=== PATIENT | male | born 1970 | race Caucasian/White ===

== ENCOUNTER → 2020-12-14 11:14 | Outpatient (BNVA) | payer OTHER, SELFPAY | PROVIDERS: PCP Internal Medicine; Visit Provider Physician Assistant | DX: S00.212A Abrasion of left eyelid and periocular area, initial encounter (principal); W22.09XA Striking against other stationary object, initial encounter | CPT/HCPCS: 99203 ==

== ENCOUNTER 2021-11-18 13:57 | Emergency (ER) | payer OTHER, SELFPAY ==
--- NOTE | ~2021-11-18 | CT_ITS ---
EXAMINATION: CT ANGIOGRAM NECK WITH CONTRAST CT ANGIOGRAM BRAIN WITH CONTRAST CT HEAD WITHOUT CONTRAST CLINICAL INFORMATION: Sudden onset of severe headache. Elevated blood pressure. COMPARISON: Head CT 04/30/2008. TECHNIQUE: An initial noncontrast head CT was performed. Test bolus sequences followed by intravenous administration 100 mL of Omnipaque 350. Helical imaging was performed in the axial plane from the thoracic inlet to the skull vertex. Delayed postcontrast imaging of the head was also performed. The data was processed at the manufacturing engineering technologist workstation for generation of MIP sequences. Angled MIPs and volume rendered reformatted images were also generated at an offline 3D workstation. Stenoses are assessed in accordance with NASCET criteria unless otherwise indicated. This CT examination was performed using dose optimization techniques as appropriate, variously including the following: *Automated exposure control *Adjustment of mA and/or kV according to patient size (this includes techniques or standardized protocols for targeted exams where dose is matched to indication/reason for exam; i.e. extremities or head) *Use of iterative reconstruction technique DLP: 2668 mGy-cm FINDINGS: Head CT: There is no intracranial hemorrhage, large acute infarction, or mass lesion. The ventricles are normal in size and configuration without evidence of hydrocephalus. No abnormal enhancement is seen on the postcontrast images. The dural venous sinuses are patent. The visualized paranasal sinuses and mastoid air cells are clear. Neck CTA: The aortic arch is patent. The great vessel origins are patent. The bilateral common carotid arteries are patent. No stenosis is seen at the carotid bifurcations. The cervical segments of both internal carotid arteries are patent. The bilateral vertebral arteries are patent. Head CTA: No proximal vessel occlusion is seen. Minimal atheromatous changes are seen at the carotid siphons. The anterior and posterior circulations are patent. There is no stenosis or occlusion. No aneurysm is seen. Non-vascular findings: The cervical soft tissues are within normal limits. Nonenlarged reactive appearing cervical lymph nodes are seen along the cervical chains. The upper lungs are clear. Mild degenerative changes are seen in the spine. CT/CT angio head neck IMPRESSION: CT head: No intracranial hemorrhage or large acute infarction. CTA neck: No hemodynamically significant stenosis in the major arteries of the neck. CTA head: No large vessel occlusion or significant stenosis within the intracranial circulation. No evidence of aneurysm. Additional findings: A 2.8 cm nodule is seen in the right lobe of the thyroid gland. Dedicated thyroid ultrasound is recommended on a nonemergent basis is based on size criteria.
--- NOTE | ~2021-11-18 | CT_ITS ---
EXAMINATION: CT ANGIOGRAM NECK WITH CONTRAST CT ANGIOGRAM BRAIN WITH CONTRAST CT HEAD WITHOUT CONTRAST CLINICAL INFORMATION: Sudden onset of severe headache. Elevated blood pressure. COMPARISON: Head CT 04/30/2008. TECHNIQUE: An initial noncontrast head CT was performed. Test bolus sequences followed by intravenous administration 100 mL of Omnipaque 350. Helical imaging was performed in the axial plane from the thoracic inlet to the skull vertex. Delayed postcontrast imaging of the head was also performed. The data was processed at the dairy technologist workstation for generation of MIP sequences. Angled MIPs and volume rendered reformatted images were also generated at an offline 3D workstation. Stenoses are assessed in accordance with NASCET criteria unless otherwise indicated. This CT examination was performed using dose optimization techniques as appropriate, variously including the following: *Automated exposure control *Adjustment of mA and/or kV according to patient size (this includes techniques or standardized protocols for targeted exams where dose is matched to indication/reason for exam; i.e. extremities or head) *Use of iterative reconstruction technique DLP: 2668 mGy-cm FINDINGS: Head CT: There is no intracranial hemorrhage, large acute infarction, or mass lesion. The ventricles are normal in size and configuration without evidence of hydrocephalus. No abnormal enhancement is seen on the postcontrast images. The dural venous sinuses are patent. The visualized paranasal sinuses and mastoid air cells are clear. Neck CTA: The aortic arch is patent. The great vessel origins are patent. The bilateral common carotid arteries are patent. No stenosis is seen at the carotid bifurcations. The cervical segments of both internal carotid arteries are patent. The bilateral vertebral arteries are patent. Head CTA: No proximal vessel occlusion is seen. Minimal atheromatous changes are seen at the carotid siphons. The anterior and posterior circulations are patent. There is no stenosis or occlusion. No aneurysm is seen. Non-vascular findings: The cervical soft tissues are within normal limits. Nonenlarged reactive appearing cervical lymph nodes are seen along the cervical chains. The upper lungs are clear. Mild degenerative changes are seen in the spine. CT/CT head/brain wo con IMPRESSION: CT head: No intracranial hemorrhage or large acute infarction. CTA neck: No hemodynamically significant stenosis in the major arteries of the neck. CTA head: No large vessel occlusion or significant stenosis within the intracranial circulation. No evidence of aneurysm. Additional findings: A 2.8 cm nodule is seen in the right lobe of the thyroid gland. Dedicated thyroid ultrasound is recommended on a nonemergent basis is based on size criteria.
[2021-11-18 14:02] VITALS: BP 185/132; PULSE 127; RESP 18; TEMP 36.8; O2SAT 100; BMI 30.8
--- NOTE | 2021-11-18 14:18 | ECG_ITS ---
Test Reason : general medical Blood Pressure : / mmHG Vent. Rate : 116 BPM Atrial Rate : 116 BPM P-R Int : 152 ms QRS Dur : 088 ms QT Int : 340 ms P-R-T Axes : 041 008 048 degrees QTc Int : 472 ms Sinus tachycardia Inferior infarct , age undetermined Abnormal ECG When compared with ECG of 13-FEB-2013 03:55, Vent. rate has increased BY 47 BPM Inferior infarct is now Present Referred By: Generic ED Physician Electronically Signed By:BARNEY DUTTA
[2021-11-18 14:28] LABS: MANUAL DIFF FLAG NO
[2021-11-18 14:33] LABS: Basophils Percent Auto 0.5 % (0-2); Eosinophils Absolute Auto 0.1 X10*3/uL (0.0-0.4); Eosinophils Percent Auto 1.4 % (0-4); Hematocrit 47.8 % (42.0-52.0); Hemoglobin 16.6 g/dl (14.0-18.0); Imm Gran Abs Auto 0.07 X10*3/uL (0.00-0.03); Imm Gran Pct Auto 0.9 % (0.0-0.4); Lymphocytes Absolute Auto 1.9 X10*3/uL (1.2-4.9); Lymphocytes Percent Auto 23.5 % (20-40); Mean Corpuscular HGB Conc 34.7 g/dl (31.0-36.0); Mean Corpuscular Hemoglobin 30.1 pg (27.0-33.0); Mean Corpuscular Volume 86.8 fL (80.0-98.0); Mean Platelet Volume 12.5 fL (9.4-12.4); Monocytes Absolute Auto 0.6 X10*3/uL (0.1-1.2); Monocytes Percent Auto 7.5 % (2-11); Neutrophils Absolute Auto 5.3 x10*3/uL (2.0-8.3); Neutrophils Percent Auto 66.2 % (45-73); Platelet Count 166 X10*3/uL (160-400); Red Blood Count 5.51 X10*6/uL (4.60-5.80)
[2021-11-18 14:48] LABS: Anion Gap 15 (12-20); Blood Urea Nitrogen 12 mg/dL (9-16); Calcium 10.1 mg/dL (8.4-10.2); Carbon Dioxide 26 mmol/L (22-29); Chloride 103 mmol/L (96-108); Creatinine Clr Calc Pharmacy 111.3; Estimated Glomerular Filt Rate > 60; Glucose Random 103 mg/dL (60-115); Potassium 4.3 mmol/L (3.3-5.1); Sodium 140 mmol/L (135-145)
[2021-11-18 14:52] LABS: Troponin-I High Sensitivity 3.8 ng/L (<3.5-35.0)
--- NOTE | 2021-11-18 15:57 | ED.GENADULT ---
HPI - General Adult General Chief complaint: Dizziness Stated complaint: dizziness/ high BP Time Seen by Provider: 11/18/21 15:02 Source: patient and EMS Mode of arrival: EMS Limitations: no limitations History of Present Illness HPI narrative: Patient comes to emergency room complaining of a sudden onset of dizziness and a headache patient states that it lasted for about a minute, had trouble focusing, dizziness self-resolved within couple of minutes. Patient states that he still has mild headache. Related Data Previous Rx's Medication Instructions Recorded hydrochlorothiazide 25 mg tablet 25 mg PO DAILY #30 tab 11/18/21 Allergies Allergy/AdvReac Type Severity Reaction Status Date / Time niacin Allergy Unknown SWELLING Verified 11/18/21 16:51 [From NIASPAN EXTENDED-RELEASE] Review of Systems Review of Systems: Constitutional : No Weight loss, No Fever, No Chills, No Night Sweats, No Fatigue, No Malaise ENT/Mouth : No Hearing loss, No Ear Pain, No Nasal Congestion, No Sinus Pain, No Hoarseness, No sore throat, No Rhinorrhea, No Swallowing Difficulty Eyes: No Eye Pain, No Swelling, No Redness, No Foreign Body, No Discharge, No Vision Changes Cardiovascular : No Chest Pain, No SOB, No Dyspnea on Exertion, No Orthopnea, No Edema, No Palpitations Respiratory : No Cough, No Sputum, No Wheezing, No Smoke Exposure, No Dyspnea Gastrointestinal : No Nausea, No Vomiting, No Diarrhea, No Constipation, No abdominal Pain, No Hematochezia, No Melena Genitourinary : no irregular bleeding, No Dysuria, No Urinary Frequency, No Hematuria, No Urinary Incontinence, No Urgency, No Flank Pain, No Urinary Flow Changes, No Hesitancy Musculoskeletal : No joint pain, No Myalgias, No Joint Swelling Skin : No Skin Lesions, No rash Neuro : No Weakness, No Numbness, No Paresthesias, No Loss of Consciousness, No Dizziness, No Headache Psych : No Anxiety/Panic, No Depression, No SI/HI/AH/VH, No Social Issues, Heme/Lymph: No Bruising, No Bleeding,No Lymphadenopathy Endocrine : No Polyuria, No Polydipsia, No Temperature Intolerance PMFSH Social History Social History Alcohol intake: current Alcohol intake frequency: holidays/special occasions only Patient Tobacco Use Status: Never used Tobacco Use of substances other than those prescribed or required for medical reasons: No Advance Directives: No Advance Directives Information Provided: No Physical Exam ED Vital Signs: Vital Signs - 24 hr 11/18/21 14:02 11/18/21 16:45 Temperature 98.2 F 98.1 F Pulse Rate 127 H 87 Respiratory Rate 18 18 Blood Pressure 185/132 H 139/94 H Pulse Oximetry 100 98 BMI result Body Mass Index 30.8 Course Course Course Narrative: Patient no longer has a headache, blood pressure is now 139/94, patient did not take any medications. Patient is now asymptomatic. Head CT and CTA negative. I also discussed with the patient that the incidental thyroid nodule was found. Patient will follow up with his primary care physician. I also discussed with the patient the options of keeping a log for blood pressure, and following up with his primary care physician. However, patient decided to start treatment now. Medical Decision Making Lab Data Result diagrams: 11/18/21 16:44 11/18/21 16:44 Labs: Lab Results 11/18/21 11/18/21 11/18/21 Range/Units 14:23 14:23 14:23 WBC 8.0 (4.8-10.8) X10*3/uL RBC 5.51 (4.60-5.80) X10*6/uL Hgb 16.6 (14.0-18.0) g/dl Hct 47.8 (42.0-52.0) % MCV 86.8 (80.0-98.0) fL MCH 30.1 (27.0-33.0) pg MCHC 34.7 (31.0-36.0) g/dl RDW 12.0 (11.0-16.0) % Plt Count 166 (160-400) X10*3/uL MPV 12.5 H (9.4-12.4) fL Immature Gran % (Auto) 0.9 H (0.0-0.4) % Neut % (Auto) 66.2 (45-73) % Lymph % (Auto) 23.5 (20-40) % [place] % (Auto) 7.5 (2-11) % Eos % (Auto) 1.4 (0-4) % Baso % (Auto) 0.5 (0-2) % Lymph # (Auto) 1.9 (1.2-4.9) X10*3/uL [place] # (Auto) 0.6 (0.1-1.2) X10*3/uL Eos # (Auto) 0.1 (0.0-0.4) X10*3/uL Baso # (Auto) 0.0 (0.0-0.2) X10*3/uL Abs Immat Gran (auto) 0.07 H (0.00-0.03) X10*3/uL Absolute Neuts (auto) 5.3 (2.0-8.3) x10*3/uL Absolute Nucleated RBC 0.000 (0.0-0.012) X10*3/uL Nucleated RBC % (auto) 0.0 (0.0-0.2) /100WBC Sodium 140 (135-145) mmol/L Potassium 4.3 (3.3-5.1) mmol/L Chloride 103 (96-108) mmol/L Carbon Dioxide 26 (22-29) mmol/L Anion Gap 15 (12-20) BUN 12 (9-16) mg/dL Creatinine 0.93 (0.5-1.4) mg/dL Estim Creat Clear Calc 111.3 Estimated GFR > 60 Random Glucose 103 (60-115) mg/dL Calcium 10.1 (8.4-10.2) mg/dL Troponin I High Sens 3.8 (<3.5-35.0) ng/L B-Natriuretic Peptide (<100) pg/mL 11/18/21 11/18/21 11/18/21 Range/Units 16:44 16:44 16:44 WBC 8.8 (4.8-10.8) X10*3/uL RBC 5.44 (4.60-5.80) X10*6/uL Hgb 16.3 (14.0-18.0) g/dl Hct 47.0 (42.0-52.0) % MCV 86.4 (80.0-98.0) fL MCH 30.0 (27.0-33.0) pg MCHC 34.7 (31.0-36.0) g/dl RDW 12.1 (11.0-16.0) % Plt Count 162 (160-400) X10*3/uL MPV 12.6 H (9.4-12.4) fL Immature Gran % (Auto) 0.8 H (0.0-0.4) % Neut % (Auto) 63.9 (45-73) % Lymph % (Auto) 26.6 (20-40) % [place] % (Auto) 7.1 (2-11) % Eos % (Auto) 1.1 (0-4) % Baso % (Auto) 0.5 (0-2) % Lymph # (Auto) 2.3 (1.2-4.9) X10*3/uL [place] # (Auto) 0.6 (0.1-1.2) X10*3/uL Eos # (Auto) 0.1 (0.0-0.4) X10*3/uL Baso # (Auto) 0.0 (0.0-0.2) X10*3/uL Abs Immat Gran (auto) 0.07 H (0.00-0.03) X10*3/uL Absolute Neuts (auto) 5.6 (2.0-8.3) x10*3/uL Absolute Nucleated RBC 0.000 (0.0-0.012) X10*3/uL Nucleated RBC % (auto) 0.0 (0.0-0.2) /100WBC Sodium 138 (135-145) mmol/L Potassium 4.3 (3.3-5.1) mmol/L Chloride 103 (96-108) mmol/L Carbon Dioxide 25 (22-29) mmol/L Anion Gap 14 (12-20) BUN 11 (9-16) mg/dL Creatinine 0.83 (0.5-1.4) mg/dL Estim Creat Clear Calc 124.7 Estimated GFR > 60 Random Glucose 85 (60-115) mg/dL Calcium 9.9 (8.4-10.2) mg/dL Troponin I High Sens 3.9 (<3.5-35.0) ng/L B-Natriuretic Peptide < 10 (<100) pg/mL Discharge Plan Discharge Clinical Impression: Hypertension, Headache Patient Disposition: Home, Self-Care Instructions: Acute Headache (DC), Hypertension (ED) Additional Instructions: Please follow-up with your primary care physician tomorrow. If you have any worsening or new symptoms, please return to the emergency room or call 911 Prescriptions: New hydrochlorothiazide 25 mg tablet 25 mg PO DAILY Qty: 30 0RF
[2021-11-18 16:45] VITALS: BP 139/94; PULSE 87; RESP 18; TEMP 36.7; O2SAT 98
--- NOTE | 2021-11-18 16:50 | PC.NURSE ---
no neuro deficits. describes episodes of lightheadedness, headache (right frontal), dizziness, difficulty focusing eyes.
[2021-11-18 16:57] LABS: MANUAL DIFF FLAG NO
[2021-11-18 17:00] LABS: Basophils Percent Auto 0.5 % (0-2); Eosinophils Absolute Auto 0.1 X10*3/uL (0.0-0.4); Eosinophils Percent Auto 1.1 % (0-4); Hemoglobin 16.3 g/dl (14.0-18.0); Imm Gran Abs Auto 0.07 X10*3/uL (0.00-0.03); Imm Gran Pct Auto 0.8 % (0.0-0.4); Lymphocytes Absolute Auto 2.3 X10*3/uL (1.2-4.9); Lymphocytes Percent Auto 26.6 % (20-40); Mean Corpuscular HGB Conc 34.7 g/dl (31.0-36.0); Mean Corpuscular Volume 86.4 fL (80.0-98.0); Mean Platelet Volume 12.6 fL (9.4-12.4); Monocytes Absolute Auto 0.6 X10*3/uL (0.1-1.2); Monocytes Percent Auto 7.1 % (2-11); Neutrophils Absolute Auto 5.6 x10*3/uL (2.0-8.3); Neutrophils Percent Auto 63.9 % (45-73); Platelet Count 162 X10*3/uL (160-400); Red Blood Count 5.44 X10*6/uL (4.60-5.80); Red Cell Distribution Width 12.1 % (11.0-16.0); White Blood Count 8.8 X10*3/uL (4.8-10.8)
[2021-11-18 17:13] LABS: Anion Gap 14 (12-20); Blood Urea Nitrogen 11 mg/dL (9-16); Calcium 9.9 mg/dL (8.4-10.2); Carbon Dioxide 25 mmol/L (22-29); Chloride 103 mmol/L (96-108); Creatinine Clr Calc Pharmacy 124.7; Estimated Glomerular Filt Rate > 60; Glucose Random 85 mg/dL (60-115); Potassium 4.3 mmol/L (3.3-5.1); Sodium 138 mmol/L (135-145)
[2021-11-18 17:19] LABS: B Type Natriuretic Peptide < 10 pg/mL (<100); Troponin-I High Sensitivity 3.9 ng/L (<3.5-35.0)
[2021-11-18] MEDS: Acetaminophen 325 MG TABLET 650 MG PO (17:36)
[2021-11-18] MEDS: 0.9 % Sodium Chloride 1,000 ML 999 ML IVCONT (17:36)
[2021-11-18] MEDS: iohexoL 350 MG/ML 100 ML INFUS..BTL IV (17:39)
== END 2021-11-18 18:37 | disposition home or self-care (01) ==
PROVIDERS: Emergency Provider Emergency Medicine; PCP Internal Medicine
DX: I10 Essential (primary) hypertension (principal); R51.9 Headache, unspecified; R93.0 Abnormal findings on diagnostic imaging of skull and head, not elsewhere classified; E04.1 Nontoxic single thyroid nodule
CPT/HCPCS: 36415; 70450; 70496; 70498; 80048; 83880; 84484; 85025; 93005; 96360; 99284; 99285; Q9967

== ENCOUNTER 2021-12-05 15:25 | Outpatient (REF) | payer OTHER, SELFPAY ==
[2021-12-05 18:00] LABS: Red Cell Distribution Width 12.1 % (11.0-16.0); White Blood Count 9.6 X10*3/uL (4.8-10.8)
[2021-12-05 18:02] LABS: Hematocrit 48.7 % (42.0-52.0); Hemoglobin 16.9 g/dl (14.0-18.0); Mean Corpuscular HGB Conc 34.7 g/dl (31.0-36.0); Mean Corpuscular Hemoglobin 30.1 pg (27.0-33.0); Mean Corpuscular Volume 86.7 fL (80.0-98.0); Mean Platelet Volume 13.6 fL (9.4-12.4); Platelet Count 168 X10*3/uL (160-400); Red Blood Count 5.62 X10*6/uL (4.60-5.80)
[2021-12-05 18:09] LABS: Alanine Aminotransferase 54 U/L (0-40); Albumin Level 4.9 g/dL (3.5-5.0); Alkaline Phosphatase 115 U/L (39-117); Anion Gap 13 (12-20); Aspartate Amino Transferase 30 U/L (5-37); Bilirubin Total 0.9 mg/dL (0.0-1.0); Blood Urea Nitrogen 10 mg/dL (9-16); Calcium 10.4 mg/dL (8.4-10.2); Carbon Dioxide 29 mmol/L (22-29); Chloride 99 mmol/L (96-108); Estimated Glomerular Filt Rate > 60; Glucose Random 74 mg/dL (60-115); Potassium 4.3 mmol/L (3.3-5.1); Sodium 137 mmol/L (135-145); Total Protein 7.9 g/dL (6.5-8.0)
[2021-12-05 18:24] LABS: PLT ABN DIST 1
[2021-12-05 18:35] LABS: Thyroid Stimulating Hormone 1.42 uIU/mL (0.32-4.0); Vitamin D 25-OH Total 17.6 ng/mL (>30)
[2021-12-05 19:07] LABS: Prostate Specific Antigen 1.51 ng/mL (<0.05-4.0)
== END 2021-12-05 15:26 | disposition home or self-care (01) ==
LOC: HO.MANLDS 15:25
PROVIDERS: PCP Internal Medicine; Visit Provider Internal Medicine
DX: I10 Essential (primary) hypertension (principal); Z12.5 Encounter for screening for malignant neoplasm of prostate
CPT/HCPCS: 36415; 80053; 82306; 84153; 84443; 85027

== ENCOUNTER → 2022-01-24 07:23 | Outpatient (REF) | payer OTHER, SELFPAY ==
--- NOTE | 2022-01-24 07:28 | CA_ITS ---
Transthoracic Echocardiogram Patient (Last, First, Middle): Je Sherwood J Gender: Male Date of : 1970 Age: 51 Procedure Date: 01/24/2022 Procedure Type: Transthoracic Echocardiogram Location: OP Height: 177.8 cm Weight: 99.79 kg BSA: 2.17 m2 Heart Rate: bpm BP: 128 / 82 mmHg Production Planner: MIHAI Referring MD: Anup Mendoza MD Symptoms: I10 HTN Study Quality: Adequate ECG Rhythm: Sinus Conclusions: - The left ventricular systolic function is normal. The calculated ejection fraction is 61% by biplane method. - There is mild septal asymmetric hypertrophy. - No obvious valvular pathology seen on this study. Findings Left Ventricle Normal left ventricular cavity size. The left ventricular systolic function is normal. The calculated ejection fraction is 61% by biplane method. There is no evidence of regional wall motion abnormalities. Diastolic function is normal for age. There is mild septal asymmetric hypertrophy. LV peak global longitudinal strain -18.8% (normal). Right Ventricle Normal right ventricular cavity size and systolic function. Atria Both atria are normal in size. Aortic Valve There is a normal trileaflet aortic valve. There is no aortic valve stenosis. There is no aortic valve regurgitation. Mitral Valve The mitral valve appears normal. There is trace mitral valve regurgitation. There is no mitral valve stenosis. Pulmonic Valve The pulmonic valve is likely normal. There is trace pulmonic valve regurgitation. Tricuspid Valve Normal tricuspid valve structure. There is trace tricuspid valve regurgitation. The pulmonary artery systolic pressure is normal. Great Vessels Top-normal ascending aortic size at 3.7 cm. Venous The inferior vena cava is normal in size and collapses greater than 50% with inspiration. Pericardium/Pleural There is no evidence of pericardial effusion. Prior Study Comparison No prior study available for comparison. Recommendations, Care & Conclusions No obvious valvular pathology seen on this study. Measurements 2D Linear Measurements IVSd: 1.09 0.6-0.9/0.6-1.0 cm LVIDd: 5.27 3.9-5.3/4.2-5.9 cm LVIDd Index: 2.43 2.4-3.2/2.2-3.1 cm/m2 LVIDs: 3.79 2.0-3.6 cm LVPWd: 1.00 0.7-1.1 cm LA Diam: 3.80 2.7-3.8/3.0-4.0 cm LAIDs Index: 1.75 1.5-2.3 cm/m2 LV Mass: 262.42 67-162/88-224 g LV Mass Index: 120.93 43-95/49-115 g/m2 LVOT Diam: 2.40 3.0+(-)1.3 cm 2D Systolic Function EF 4C: 61.70 >55% EF 2C: 60.70 >55% EF BiP: 60.50 >55% Mitral Valve MV Pk E: 0.85 MV PK A: 0.58 MV Decel Time: 223.00 E/A: 1.50 E'Lateral: 12.00 E'Medial: 8.70 E/E' Med: 9.70 E/E' Lat: 7.10 PHT: 65.00 MVA PHT: 3.38 Decel [place]: 3.81 Aortic Valve AoV Pk Chivo: 1.09 AoV Mn Chivo: 0.80 AoV VTI: 0.27 AoV Pk Grad: 5.00 Aov Mn Grad: 3.00 CYNTHIA Cont.VTI: 3.88 LVOT LVOT Pk Chivo: 0.84 LVOT Mn Chivo: 0.62 LVOT VTI: 0.23 LVOT Pk Grad: 3.00 LVOT Mn Grad: 2.00 LVOT Diam: 2.40 LVOT Area: 4.52 Diastolic Function MV Pk E: 0.85 MV Pk A: 0.58 E/A: 1.50 E'Medial: 8.70 E/E' Med: 9.70 E' Laterial: 12.00 E/E' Lat: 7.10 Right Ventricle TAPSE (mm): 19.90 TVS' Chivo: 8.05 Tricuspid Valve TR Pk Chivo: 2.04 TR Pk Grad: 17.00 RA Press: 3.00 RVSP: 20.00 Great Vessels Aorta Sinus of Valsalva: 3.91 2.0-3.[address] [place]: 3.46 1.7-3.4 cm Ao Asc: 3.70 2.1-3.4 cm Updated in Other Vendor System with Status of Final Julien Saleh MD electronically signed on 01/25/2022 11:18:00 AM with status of Final
--- NOTE | 2022-01-24 08:30 | CA_ITS ---
Acquisition Time: 2022-01-24 08:25:32 Total Exercise Time: 00:11:27 Test Indications: HTN Medications: SEE CHART Protocol: RADHA Max HR: 153 BPM 90% of Pred: 170 BPM Max BP: 154/090 mmHG Max Work Load: 13.4 METS Exercise stress test with exercise 11 min 27 sec of Burce protocol, achieving 90% MPHR, 13.3 METs without anginal symptoms, without arrythmia, with normotensive response to exercise, without EKG changes meeting criteria for ischemia at peak exercise, with ST/T wave abnormality lead III, aVF, V6 at baseline, then more pronounced T wave inversions inferiorly, V4-V6 in recovery. Test reviewed with Dr Dillon. Call placed to Dr Mendoza' s office with above report and recommendation for stress echocardiogram if further eval for ischemia is needed. Referred By: Anup Mendoza Overread By: MINA SALCEDO
== END ==
LOC: HO.CARD 07:23
PROVIDERS: PCP Internal Medicine; Visit Provider Internal Medicine
DX: I10 Essential (primary) hypertension (principal); R94.39 Abnormal result of other cardiovascular function study
CPT/HCPCS: 93017; 93306; 93356

== ENCOUNTER → 2022-03-20 10:49 | Outpatient (REF) | payer OTHER, SELFPAY ==
--- NOTE | 2022-03-20 12:00 | CA_ITS ---
Acquisition Time: 2022-03-20 11:39:29 Total Exercise Time: 00:11:01 Test Indications: Abnormal Treadmill Test Medications: METOPROLOL Protocol: RADHA Max HR: 169 BPM 99% of Pred: 170 BPM Max BP: 162/098 mmHG Max Work Load: 13.4 METS Exercise stress test with exercise 11 min 1 sec of Radha protocol, achieving 96% MPHR, 13.3 METs, without anginal symptoms, with isolated PVC, with normotensive response to exercise, without EKG changes meeting criteria for ischemia at peak exercise, there is downsloping ST leads III, V5, V6 at baseline and more pronounced in later recover. Echo images obtained by [facility] You [facility] at rest and immediately post peak exercise. Definity contrast used. Test reviewed with Dr Dillon. Referred By: Sheryl Cantu Overread By: MINA SALCEDO
== END ==
LOC: HO.CARD 10:49
PROVIDERS: Visit Provider Physician Assistant
DX: R94.39 Abnormal result of other cardiovascular function study (principal)
CPT/HCPCS: 93350; Q9957

== ENCOUNTER 2022-04-28 06:57 | Outpatient (REF) | payer OTHER, SELFPAY ==
[2022-04-28 07:53] LABS: Cholesterol 243 mg/dL; HDL Cholesterol 34 mg/dL; LDL Cholesterol Calculated 142 mg/dl; Triglycerides 337 mg/dL
== END 2022-04-28 06:58 | disposition home or self-care (01) ==
LOC: HO.LAB 06:57
PROVIDERS: PCP Internal Medicine; Visit Provider Internal Medicine Cardiovascular Disease
DX: R00.2 Palpitations (principal)
CPT/HCPCS: 36415; 80061

== ENCOUNTER 2024-01-22 11:19 | Outpatient (REF) | payer OTHER, SELFPAY ==
[2024-01-22 13:17] LABS: MANUAL DIFF FLAG NO
[2024-01-22 13:42] LABS: Estimated Average Glucose 97 mg/dL
[2024-01-22 14:00] LABS: Iron 129 mcg/dL (45-160); Percent Iron Saturation 46 % (15-50); Total Iron Binding Capacity 279 mcg/dL (228-428); Unsaturated Iron Binding 150 ug/dL
[2024-01-22 14:02] LABS: Basophils Percent Auto 0.7 % (0-2); Eosinophils Absolute Auto 0.1 X10*3/uL (0.0-0.4); Eosinophils Percent Auto 2.1 % (0-4); Hematocrit 45.7 % (42.0-52.0); Hemoglobin 15.7 g/dl (14.0-18.0); Imm Gran Abs Auto 0.02 X10*3/uL (0.00-0.03); Imm Gran Pct Auto 0.3 % (0.0-0.4); Lymphocytes Absolute Auto 1.7 X10*3/uL (1.2-4.9); Lymphocytes Percent Auto 29.5 % (20-40); Mean Corpuscular HGB Conc 34.4 g/dl (31.0-36.0); Mean Corpuscular Hemoglobin 30.2 pg (27.0-33.0); Mean Corpuscular Volume 87.9 fL (80.0-98.0); Mean Platelet Volume 13.5 fL (9.4-12.4); Monocytes Absolute Auto 0.5 X10*3/uL (0.1-1.2); Monocytes Percent Auto 8.5 % (2-11); Neutrophils Absolute Auto 3.4 x10*3/uL (2.0-8.3); Neutrophils Percent Auto 58.9 % (45-73); Platelet Count 153 X10*3/uL (160-400); Red Cell Distribution Width 12.4 % (11.0-16.0); White Blood Count 5.8 X10*3/uL (4.8-10.8)
[2024-01-22 14:05] LABS: Ferritin 645 ng/mL (20-250); Free T4 (Free Thyroxine) 0.98 ng/dL (0.71-1.85); Vitamin D 25-OH Total 84.6 ng/mL (>30)
[2024-01-22 14:17] LABS: Cortisol Random 8.6 ug/dL
[2024-01-22 14:19] LABS: Erythrocyte Sedimentation Rate 2 MM/HR (0-15)
[2024-01-22 14:28] LABS: Prostate Specific Antigen 0.41 ng/mL (<0.05-4.0)
[2024-01-22 14:31] LABS: Folate 10.5 ng/mL (> or = 4.0); Vitamin B12 350 pg/mL (200-900)
[2024-01-23 08:33] LABS: Triiodothyronine T3 Free 3.8 pg/mL (2.3-4.2)
[2024-01-23 08:58] LABS: Lyme Abs Screen <0.90 index
[2024-01-24 12:53] LABS: A phagocytophilum IgG <1:64 (<1:64); A phagocytophilum IgM <1:20 (<1:20)
[2024-01-26 16:52] LABS: Testosterone, Total 385 ng/dL (250-1100)
== END 2024-01-22 11:20 | disposition home or self-care (01) ==
LOC: HO.MANLDS 11:19
PROVIDERS: Visit Provider Physician Assistant
DX: R53.83 Other fatigue (principal); Z12.5 Encounter for screening for malignant neoplasm of prostate
CPT/HCPCS: 36415; 82306; 82533; 82607; 82728; 82746; 83036; 83540; 84153; 84402; 84403; 84439; 84443; 84481; 85025; 85652; 86140; 86617; 86618; 86666

== ENCOUNTER 2024-05-13 06:08 | Outpatient (REF) | payer BC, SELFPAY ==
[2024-05-13 08:46] LABS: Albumin Level 4.6 g/dL (3.5-5.0); Aspartate Amino Transferase 29 U/L (5-37); Bilirubin Direct 0.3 mg/dL (0.0-0.5); Bilirubin Total 0.9 mg/dL (0.0-1.0); Cholesterol 144 mg/dL (<200); HDL Cholesterol 38 mg/dL (>40); LDL Cholesterol Calculated 84 mg/dL (<100); Total Protein 7.2 g/dL (6.5-8.0); Triglycerides 112 mg/dL (<150)
[2024-05-13 08:53] LABS: Alanine Aminotransferase 42 U/L (0-40); Alkaline Phosphatase 101 U/L (39-117)
== END 2024-05-13 06:09 | disposition home or self-care (01) ==
LOC: HO.LAB 06:08
PROVIDERS: PCP Internal Medicine; Visit Provider Internal Medicine Cardiovascular Disease
DX: E78.00 Pure hypercholesterolemia, unspecified (principal)
CPT/HCPCS: 36415; 80061; 80076

== ENCOUNTER 2024-08-01 19:45 | Outpatient (REF) | payer BC, SELFPAY ==
--- NOTE | ~2024-08-01 | MR_ITS ---
EXAMINATION: MR KNEE WITHOUT CONTRAST, LEFT CLINICAL INFORMATION: Left knee pain and swelling. Arthritis and instability. COMPARISON: Left knee MRI dated 04/12/2018. TECHNIQUE: MRI of the knee without contrast was performed using routine sequences on a high-field scanner. FINDINGS: MENISCI: Medial Meniscus: Oblique tibial articular surface tear at the posterior aspect of the meniscal body extending to the inner margin of the posterior horn and root. Lateral Meniscus: Intact. LIGAMENTS: Cruciate: Intact. Collateral: Mild edema adjacent to the medial collateral ligament consistent with a grade 1 sprain. Intact fibular collateral ligament. EXTENSOR MECHANISM: Superior and inferior patellar enthesophytes. Mild distal quadriceps and proximal patellar tendinosis. No measurable tear. Normal patellofemoral alignment. ARTICULAR CARTILAGE/BONE: Patellofemoral Compartment: Medial patellar facet and central trochlear signal heterogeneity. Medial Compartment: Articular cartilage signal heterogeneity and surface irregularity at the central aspect of the weightbearing medial femoral condyle. Lateral Compartment: Minimal posterolateral tibial plateau articular cartilage signal heterogeneity. JOINT FLUID AND BURSAE: Small joint effusion. MR/MR knee LT wo con IMPRESSION: 1. Oblique tibial articular surface tear at the posterior aspect of the medial meniscal body extending to the inner margin of the posterior horn and root. 2. Probable grade 1 sprain of the medial collateral ligament. 3. Mild distal quadriceps and proximal patellar tendinosis. 4. Minimal tricompartmental arthrosis. Small joint effusion. Electronically signed by: Haider Grant MD 08/14/2024 01:17 PM [facility] Workstation: -[id number]
== END 2024-08-01 19:46 | disposition home or self-care (01) ==
LOC: HO.MRI 19:45
PROVIDERS: PCP Internal Medicine; Visit Provider Internal Medicine
DX: M25.362 Other instability, left knee (principal)
CPT/HCPCS: 73721

== ENCOUNTER 2025-04-10 08:28 | Outpatient (AMB) | payer OTHER, SELFPAY ==
--- OUTSIDE RECORDS SUMMARY | 2024-08-07 09:01 | XMS_ITS ---
Author Name [facility] Organization [facility] Address [address] [place] [address] Care Team Providers Care Warp Starter Name Role Phone HUMBLE MANN Primary Care Provider Unavailabl e Insurance Providers: All historical and current Section Date Range: From patient's date of to the date document was created. This section includes the names of all active insurance providers for the patient. Insurance Provider Type of Coverage Plan Name Start of Policy Coverage End of Policy Coverage Group Number Member ID Insurance Provider's Telephone Number Policy Hilton's Name Patient's Relationship to Policy Hilton [facility] POLIC E DEPT Mar 03, 2024 [id number] Catherine CORDON PATIENT [facility] Mar 03, 2024 [id number] Catherine CORDON PATIENT Selected Encounter This section includes the information on record at [place] for the Encounter. Date/Time Encounter Type Encounter Description Reason Pro vider Source Aug 07, 2024 01:01 PM Outpatient Encounter ADMIN PAT ACTIVTIES (MASNONCT) IHE Encounter Template Text not used by [place] Plan of Treatment: Future Appointments (+ 6 months) and Future Tests (+/- 45 days) The Plan of Treatment section includes future care activities for the patient from all [facility] treatment[facility]ilities. This section includes future appointments and future orders which are active, pending or scheduled. Future Appointments This section includes appointments that were scheduled to occur 6 months from the date of the Encounter, up to a maximum of 20 appointments. The data comes from all [facility] facilities. Appointment Date/Time Appointment Type Appointme nt Facility Name Aug 29, 2024 02:00 PM [facility] Sep 05, 2024 04:00 PM [facility] [place] [facility] Sep 17, 2024 10:00 AM AMBULAT[facility] [place] [facility] Oct 16, 2024 01:00 PM AMBULATORY - [facility] [place] [facility] Oct 17, 2024 09:00 AM [facility] - [facility]IC[facility] Nov 06, 2024 08:30 AM AMBULATORY - NONE [facility] [place] [facility] Dec 04, 2024 01:00 PM AMBULATORY [facility] [place] [facility] Dec 29, 2024 11:40 AM [facility] [place] [facility] Feb 04, 2025 12:30 PM AMBULATORY - MEDICINE [facility] Active, Pending, and Scheduled Orders This section includes a listing of several types of active, pending, and scheduled orders, including clinic medications orders, diagnostic test orders, procedure orders and consult orders; where the start date of the order is 45 days before the date of the Encounter or 45 days after the date of theEncounter. The data comes from all [facility]. Test Date/Time Test Type Test Details Facility Name Aug 29, 2024 02:49 PM Consult Order COMMUNITY CARE-COLONOSCOPY SCREENING Cons Candles Pourer[facility] Advance Directives: All historical and current Section Date Range: From patient's date of to the date document was created. This section includes ALL of a patient's completed or amended [place] Advance and Rescinded Directives. The entries below indicate that a directive exists for the patient, but an actual copy is not included with this document. The data comes from all [facility]. Date Advance Directives Provider Source Aug 29, 2024 ADVANCE DIRECTIVE EL [facility] [place] [facility] Encounter Notes: All associated encounter notes This section contains the clinical notes associated to the Encounter. Date/Time Encounter Note(s) Provider Source Aug 07, 2024 03:27 PM ADDENDUM: LOCAL TITLE: Addendum STANDARD TITLE: ADDENDUM DATE OF NOTE: AUG 07, 2024@15:27:53 ENTRY DATE: AUG 07, 2024@15:27:54 AUTHOR: JERMAIN KNAPP EXP COSIGNER: URGENCY: STATUS: COMPLETED AMSA/RN please call to schedule for a 60 min new patient appointment within 20 days, virtual or face to face to meet new pt scheduling guidelines. Appointment needs to be scheduled on or before Aug PATIENT PHONE - [phone] No data available F/U RTC should go to SO/PACT 5 /es/ JERMAIN KNAPP SCREEN PRINTING INSPECTOR RADIO RIGGER Signed: 08/07/2024 15:28 Receipt Acknowledged By: 08/08/2024 09:28 /es/ CAROLYN SARAVIA === --- Original Document --- 08/07/24 CCC: SCHEDULING ADMINISTRATION: DEMOGRAPHICS VERIFIED: NO LOCAL PACT called to speak with someone regarding scheduling an appt with a new PACT appt in [facility]. please contact [phone] /ritesh/ ARTEMIO MEYER 1 AMSA Signed: 08/07/2024 13:11 Receipt Acknowledged By: * AWAITING SIGNATURE * WINIFRED INGRAM * AWAITING SIGNATURE * CINDI FRIEDMAN 08/07/2024 15:27 /ritesh/ JERMAIN KNAPP SCREEN PRINTING INSPECTOR RADIO RIGGER JERMAIN KNAPP [facility] [place] [facility] Aug 07, 2024 01:09 PM ADMINISTRATIVE NOTE: LOCAL TITLE: CCC: SCHEDULING ADMINISTRATION STANDARD TITLE: ADMINISTRATIVE NOTE DATE OF NOTE: AUG 07, 2024@13:09 ENTRY DATE: AUG 07, 2024@13:09:30 AUTHOR: ARTEMIO BERMUDEZ EXP COSIGNER: URGENCY: STATUS: COMPLETED CCC: SCHEDULING ADMINISTRATION Has ADDENDA DEMOGRAPHICS VERIFIED: NO LOCAL PACT called to speak with someone regarding scheduling an appt with a new PACT appt in [facility]. please contact [phone] /ritesh/ ARTEMIO SARAVIA Signed: 08/07/2024 13:11 Receipt Acknowledged By: 08/08/2024 13:12 /es/ WINIFRED INGRAM MSA SCREEN PRINTING INSPECTOR, [facility] 08/11/2024 14:49 /es/ CINDI FRIEDMAN SCREEN PRINTING INSPECTOR RANI 08/07/2024 15:27 /es/ JERMAIN KNAPP SCREEN PRINTING INSPECTOR RADIO RIGGER 08/07/2024 ADDENDUM STATUS: COMPLETED AMSA/RN please call to schedule for a 60 min new patient appointment within 20 days, virtual or face to face to meet new pt scheduling guidelines. Appointment needs to be scheduled on or before Aug PATIENT PHONE - [phone] No data available F/U RTC should go to SO/PACT 5 /ritesh/ JERMAIN KNAPP SCREEN PRINTING INSPECTOR RADIO RIGGER Signed: 08/07/2024 15:28 Receipt Acknowledged By: 08/08/2024 09:28 /es/ ARTEMIO MEJIA [facility]
--- NOTE | 2025-04-10 08:39 | A.OFFVIS_ITS ---
Vital Signs 04/10/25 08:45 Height 5 ft 10 in Weight 230 lb BMI 33.0 BP 156/92 H Blood Pressure Location Rt brachial Position Sitting Pulse 80 Pulse Source Pulse Oximeter Pulse Oximetry (%) 97 Oxygen Delivery Method Room Air Intake Visit Reasons: colo and endo screening Intake Note: New pt for initial colo screening. FMHx per pt. CC: Pt denies any GI sx or concerns at this time. Pt states that [facility] is [facility] as prophylactic measure. Livestock [employer] Required: No Accompanied by: Self / Same As Patient Allergies niacin (From NIASPAN EXTENDED-RELEASE) Allergy (Unknown, Verified 04/10/25 08:39) SWELLING HPI HPI colo and endo screening: Details: 54 year old? male with past medical history of asthma, hyperlipidemia is here today for pre colonoscopy screening.? Patient was sent to us by his PCP.? This is his first colonoscopy screening.? Patient denies any gastrointestinal symptoms in the past or at present.? Paternal grandfather was diagnosed with colorectal cancer. ? Denies history of difficulty with sedation or anesthesia in the past.? Negative for history of sleep apnea.? Denies any history of cardiac, renal, pulmonary, or hepatic disease.?? No history of infectious? diseases like hepatitis A, B, C, HIV or tuberculosis.? Patient is not on any anticoagulation [facility] Medical History (Updated 04/10/25 @ 08:52 by MADI Torres) Hyperlipidemia Asthma Family History (Updated 04/10/25 @ 08:54 by MADI Torres) Paternal Grandfather Colon cancer Social History Alcohol intake: current Alcohol intake frequency: holidays/special occasions only Patient Tobacco Use Status: Never used Tobacco Review of Systems Const Denies weight gain and Denies weight loss ENT Reports no additional complaints, Denies dysphagia and Denies odynophagia Card Reports no additional complaints Resp Reports no additional complaints GI Denies abdominal pain, Denies belching, Denies melena, Denies bloating, Denies change in bowel habits, Denies dysphagia, Denies excessive flatus, Denies dyspepsia, Denies heartburn, Denies diarrhea, Denies loose stools, Denies nausea, Denies odynophagia and Denies vomiting Reports no additional complaints Musc Reports no additional complaints Neuro Reports no additional complaints Psych Reports no additional complaints Endo Reports no additional complaints Physical Exam Vital Signs: Last Vital Signs Pulse 80 04/10/25 08:45 BP 156/92 H 04/10/25 08:45 Pulse Ox 97 04/10/25 08:45 Oxygen Delivery Method Room Air 04/10/25 08:45 BMI result Body Mass Index 33.0 Const General: healthy appearing, no acute distress and well developed Nutritional Appearance: well nourished Orientation/consciousness: patient oriented x3 Resp Effort & Inspection: normal respiratory effort, able to speak in complete sentences, no tracheal deviation and symmetric chest movement Auscultation: clear to auscultation bilaterally Cardio Rate: regular rate GI Inspection: Yes normal to inspection and No distended Palpation (GI): Soft to palpation, not firm, nontender and No hepatosplenomegaly present Auscultation: normal bowel sounds General: Yes no CVA tenderness Back/Spine/Pelvis Back: no CVA tenderness Skin General skin exam: elasticity normal, turgor normal and dry skin Neuro General: patient oriented x3 Psych Appearance: grossly normal Mental Status: mental status grossly normal Assessment & Plan Assessment & Plan (1) Screen for colon cancer: Code(s): Z12.11 - Encounter for screening for malignant neoplasm of colon Plan Patient denies any GI, cardiac or respiratory symptoms.? Denies any issues with anesthesia in the past.? Denies any history of sleep apnea.? No history infectious diseases in the past or present.? Not on any anticoagulation therapy.? Family history of CRC.? Patient denies melena, hematochezia, unintentional weight loss or ribbon like stools.? Discussed at length the pre- procedure,? prep, diet & medications as well as what to expect prior, during and after the procedure.?? Stressed the importance of good bowel prep.? Recommended the use of Vaseline or Calmoseptine OTC & baby wipes with bowel movements to promote comfort.? ?Patient verbalizes understanding and agrees to plan of care.? He was given the opportunity to ask questions and all questions answered.? We will see him after the procedure.? Medications: New bisacodyl (Dulcolax (bisacodyl)) take 4 tabs at noon the day before your colonoscopy 20 mg (4 x 5 mg) PO ONCE 4 tabs 0RF constipation 1 day Z12.11 - Encounter for screening for malignant neoplasm of colon polyethylene glycol 3350 (Miralax) As directed by gastroenterology department at [facility] 238 grams PO ONCE 238 grams 0RF Z12.11 - Encounter for screening for malignant neoplasm of colon Coding Level of Care Code New Pt Level 3 (96380) Diagnoses Screen for colon cancer Z12.11 Time Spent (min) 40 Comment 30 minutes spent with patient and additional 10 minutes spent reviewing his records
--- OUTSIDE RECORDS SUMMARY | 2025-04-10 08:43 | XMS_ITS | Patient Health Record ---
Author Organization [facility] Address [address] [place] [address] Care Team Providers Care Meal Packer Name Role Phone Carmel BULLARD, [facility] Primary Care Provider Roni Osei Unavailable [phone] Reason For Referral No Information Medications Medication SIG (Take, Route, Fr equency, Duration) Notes Start Date End Date Status IBU-200 PRN for pain Active Social History Tobacco Use: Social History Observation Description Date Details (start date - stop date) Never Smoker NA - NA Tobacco Use/Smoking Question Answer Notes Are you a: nonsmoker Additional Findings: Tobacco Non-User Current no n-smoker Alcohol Screen Question Answer Notes Did you have a drink containing alcohol in the p ast year? Yes Points 0 Interpretation Negative Problems Problem Type SNOMED Code ICD Code Onset Dates Problem Status W/U Status Risk Notes Problem Acquired hallux valgus (77563133) Hallux valgus (acquired), right foot (M20.11) Active confirmed Plan Of Treatment No Information Insurance Providers Payer Name Payer Address Payer Phone Subscriber Number Group Number Insured Name Patient Relationship to Insured Coverage Start Date Coverage End Date Cigna [address] [facility] [address] [id number] Je Sherwood Self - patient is the insured Medical (General) History Medical History History ICD Code Broken bones chronic sinusitis Gout Warts Surgical History Surgery Date(Month/Year) umbilical hernia repair 1972 tendon repair 1986 knee, right 1988 sinus surgery 1992 appendix 1999 hand/wrist 2014
[2025-04-10 08:45] VITALS: BP 156/92; PULSE 80; O2SAT 97; BMI 33.0
== END 2025-04-10 09:17 | disposition home or self-care (01) ==
PROVIDERS: PCP Internal Medicine; Visit Provider Nurse Practitioner Family
DX: Z01.818 Encounter for other preprocedural examination (principal); Z12.11 Encounter for screening for malignant neoplasm of colon
CPT/HCPCS: S0285

== ENCOUNTER 2025-07-08 09:40 | Emergency (ER) | payer OTHER, SELFPAY ==
--- NOTE | ~2025-07-08 | XR_ITS ---
EXAMINATION: XR ELBOW, LEFT CLINICAL INFORMATION: pain. fall restraining perp COMPARISON: X-ray dated June 08, 2009 is not available on PACS. TECHNIQUE: AP, lateral, and oblique views of the left elbow. FINDINGS: There is an exostosis in the superior likely at the triceps tendon insertion. No acute cortical disruption or malalignment. No lytic or blastic lesions. No joint effusion. No subcutaneous emphysema. No metallic or radiopaque foreign body. XR/XR elbow LT min 3V IMPRESSION: No acute fracture or dislocation. Enthesopathy, triceps tendon. EXAMINATION: XR KNEES, BILATERAL CLINICAL INFORMATION: pain. fall restraining perp COMPARISON: March 30, 2018 and January 17, 2017. TECHNIQUE: AP oblique and lateral views both knees. FINDINGS: No acute cortical disruption or malalignment. No lytic or blastic lesions. No suprapatellar bursa joint effusion. Exostosis at the anterior superior patella. Joint space narrowing involving mostly the medial compartments. No chondrocalcinosis of the menisci. Vascular calcifications. No subcutaneous edema. No metallic or radiopaque foreign body. Old traumatic deformity in the proximal left fibula. IMPRESSION: No acute fracture or dislocation. Enthesopathy, quadriceps tendon. Atherosclerosis disease, peripheral. Bicompartmental osteoarthrosis/osteoarthritis, mild. Electronically signed by: Stoney Hearn MD 07/08/2025 10:36 AM RONNIE
--- NOTE | ~2025-07-08 | XR_ITS ---
EXAMINATION: XR ELBOW, LEFT CLINICAL INFORMATION: pain. fall restraining perp COMPARISON: X-ray dated June 08, 2009 is not available on PACS. TECHNIQUE: AP, lateral, and oblique views of the left elbow. FINDINGS: There is an exostosis in the superior likely at the triceps tendon insertion. No acute cortical disruption or malalignment. No lytic or blastic lesions. No joint effusion. No subcutaneous emphysema. No metallic or radiopaque foreign body. XR/XR Knee Ishan 4V IMPRESSION: No acute fracture or dislocation. Enthesopathy, triceps tendon. EXAMINATION: XR KNEES, BILATERAL CLINICAL INFORMATION: pain. fall restraining perp COMPARISON: March 30, 2018 and January 17, 2017. TECHNIQUE: AP oblique and lateral views both knees. FINDINGS: No acute cortical disruption or malalignment. No lytic or blastic lesions. No suprapatellar bursa joint effusion. Exostosis at the anterior superior patella. Joint space narrowing involving mostly the medial compartments. No chondrocalcinosis of the menisci. Vascular calcifications. No subcutaneous edema. No metallic or radiopaque foreign body. Old traumatic deformity in the proximal left fibula. IMPRESSION: No acute fracture or dislocation. Enthesopathy, quadriceps tendon. Atherosclerosis disease, peripheral. Bicompartmental osteoarthrosis/osteoarthritis, mild. Electronically signed by: Stoney Hearn MD 07/08/2025 10:36 AM RONNIE MCPHERSON
[2025-07-08 09:46] VITALS: BP 180/120; PULSE 88; RESP 18; TEMP 36.6; O2SAT 98; BMI 30.1
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
--- OUTSIDE RECORDS SUMMARY | 2025-07-08 11:32 | XMS_ITS | Data Portability ---
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 REVIEW OF PRIOR EXTERNAL NOTES/RESULTS, ORDERING OF TEST(S) CATEGORY 2. 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 REVIEW OF PRIOR EXTERNAL NOTES/RESULTS, ORDERING OF TEST(S) CATEGORY 2. 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) MDM MODERATE MUST MEET 2 OUT OF 3 ELEMENTS: PROBLEMS, DATA OR RISK ELEMENT 1: PROBLEMS ADDRESSED 1 OR MORE CHRONIC ILLNESS WITH EXACERBATION OR 2 OR MORE STABLE CHRONIC ILLNESSES OR 1 UNDIAGNOSED NEW PROBLEM OR 1 ACUTE ILLNESS W/SYMPTOMS OR 1 ACUTE COMPLICATED INJURY ELEMENT 2: DATA MUST MEET 1 OF 3 CATEGORIES CATEGORY 1: REVIEW OF PRIOR EXTERNAL NOTES, REVIEW OF RESULTS, ORDERING OF EACH TEST, ASSESSMENT REQUIRING INDEPENDENT HISTORIAN OR CATEGORY 2: INDEPENDENT INTERPRETATION OF TESTS BY ANOTHER PHYSICIAN OR SPECIALIST OR CATEGORY 3: DISCUSSION OF MGT OR TEST INTERPRETATION W/EXTERNAL PHYSICIAN OR SPECIALIST ELEMENT 3: RISK RISK OF COMPLICATIONS AND/OR MORBIDITY OR MORTALITY OF PATIENT MANAGEMENT PROVIDER MUST THOROUGHLY DOCUMENT EACH ELEMENT THAT IS COVERED Not available 07/04/2024 11:30:14 Plan of Treatment Reminders Order Date Submit Date Provider Last Modified By Organization Details Last Modified Time Details Appointments None recorded. Lab PSA, serum or plasma 2023 [facility], [address] [place] [address], [address], 11:07:45 testostero ne, free + total, serum 2023 [facility], [address] [place] [address], [address], 4 11:16:35 vitamin B12 + folate, serum or blood 2023 [facility], [address] [place] [address], [address], 4 11:07:45 vitamin D, 25-hydroxy , total, serum 2023 024 [facility], [address] [place] [address], [address], 4 11:07:45 TSH + T4, serum 2023 024 [facility], [address] [place] [address], [address], 4 11:07:45 iron + TIBC + ferritin, serum 2023 024 [facility], [address] [place] [address], [address], 4 11:07:45 hemoglobin A1c, QN, blood 2023 024 [facility], [address] [place] [address], [address], 4 11:07:45 CBC w/ auto diff 2023 [facility], [address] [place] [address], [address], 4 11:07:45 lyme disease igg+igm, serum, reflex western blot 2023 024 [facility], [address] [place] [address], [address], 4 11:38:03 anaplasma phagocytop hilum (hga/hge) igg+igm Ab, serum 2023 024 [facility], [address] [place] [address], [address], 4 11:16:15 cortisol, free, serum - random 2023 024 [facility], [address] [place] [address], [address], 4 11:07:44 T3, free, serum or plasma 2023 024 [facility], [address] [place] [address], [address], 4 11:07:44 ESR (erythrocy te sedimentat ion rate), blood 2023 024 [facility], [address] [place] [address], [address], 4 11:07:45 C reactive protein, QN, serum or plasma 2023 024 [facility], [address] [place] [address], [address], 4 11:07:45 Referral cath lab technologist & immunologi st referral 2023 024 hrnadia Sanchez, [address] [place] [address], [address], 4 09:34:42 cath lab technologist & immunologi st referral 2023 024 hrubner Not available 4 08:22:38 orthopedic surgeon referral 2022 023 hrubhomer Swain DO Ms, [address] [facility], [place], [address], 3 08:08:17 Procedures None recorded. Surgeries None recorded. Imaging MRI, knee, w/o contrast 2023 024 [facility], [address] [place] [address], [place], [address], 4 08:26:49 XR, hip, bilateral, 2 view - 2ND FAX bilateral xrays please 2022 023 SONI Not available 3 17:13:34 XR, knee, 3 view 2022 023 SONI Not available 3 17:12:18 Medication Orders diclofenac sodium 75 mg tablet,del ayed release 2023 024 [facility], [address] [place], [address], 4 11:36:11 oxycodone 5 mg tablet 2023 024 [facility], [address] [place], [address], 4 11:03:38 cefdinir 300 mg capsule 2023 024 [facility], [address] [place], [address], 4 10:34:48 Patient TargetsNo targets recorded. 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 [facility] [address] [facility] [address], [place], [address], 07/09/2023 10:15:17 07/06/20 23 07/05/2023 XR, hip, bilat eral, 2 view No observ ation record ed. [facility] [address] [facility] [address], [place], [address], 07/09/2023 10:15:17 08/14/20 24 08/01/2024 MRI, knee, w/o contr ast No observ ation record ed. [email or web address] [facility] (Medical Records) [address] [place], [address], 08/20/2024 08:47:18 08/15/20 24 08/01/2024 MRI, knee, w/o contr ast No observ ation record ed. [email or web address] [facility] (Medical Records) [address] [place], [address], 08/20/2024 08:47:18 07/08/20 25 07/08/2025 XR, knee No observ ation record ed. [facility] (Medical Records) [address] [place], [address], 07/08/2025 11:10:56 07/08/2007/08/2025 XR, elbow No observ ation record ed. [facility] (Medical Records) [address] [place], [address], 07/08/2025 11:11:14 Result Notes None recorded. Problems Name Problem SNOMED Code Status Onset Date Resolution Date Notes Provider Name and Address Organization Details Recorded Time Hypertens fred disorder 46105374 Active 2021 Jayde pisano [facility] 2 12:22:42 Headache 81384330 Active 2021 Jayde pisano [facility] 2 12:22:50 Seasonal asthma 878753749 Active 2021 Anup Mendoza DO [address] [place] [address], [address], [facility] 2 14:57:16 Seasonal allergy 951509386 Active 2021 Anup Mendoza DO [address] [place] [address], [address], [facility] 2 14:57:29 Cardiovas cular stress test abnormal 896983938 Active 2021 PAOLO ROB [address] [place] [address], [address], [facility] 2 14:53:31 Dysplasti c nevus of skin 887676233 Active 2021 Anup Mendoza, DO [address] [place] [address], [address], [facility] 2 16:40:06 Blood in ear canal 067101571 Active 2022 PAOLO ROB [address] [place] [address], [address], [facility] 3 11:44:50 Otalgia of right ear 7510934144 Active 2022 PAOLO ROB [address] [place] [address], [address], [facility] 3 11:45:27 Pain of bilateral knee joints 992825416651 104 Active 2022 Anup Mendoza, [address] [place] [address], [address], [facility] 3 11:15:39 Pain of bilateral hip joints 145915371198 57575 Active 2022 Anup Mendoza, [address] [place] [address], [address], [facility] 3 11:17:27 Instabili ty of joint of left knee 068102081632 9106 Active 2022 Anup Mendoza, [address] [place] [address], [address], [facility] 3 11:19:32 Acute sinusitis 82453407 Active 2023 Anup Mendoza DO [address] [place] [address], [address], [facility] 4 13:59:01 Fatigue 27178771 Active 2023 PAOLO ROB [address] [place], [address], [facility] 4 10:54:38 Exacerbat ion of intermitt ent asthma 829922540 Active 2023 PAOLO ROB [address] [place], [address], [facility] 4 13:55:47 Seasonal allergic rhinitis 753957903 Active 2023 PAOLO ROB [address] [place] [address], [address], [facility] 4 13:38:27 Asthma 283817612 Active 2023 PAOLO ROB [address] [place] [address], [address], [facility] 4 13:42:16 Acute tear of medial meniscus of left knee 960127995690 05896 Active 2023 Anup Mendoza DO [address] [place] [address], [address], [facility] 4 08:08:23 Problem Notes None recorded. Medical Equipment None Reported. Allergies Allergen ID Allergen Name Allergen Category Reaction Reaction Severity Criticality Documentation Date Start Date Code Code System Note Provider Name and Address Organization Details Recorded Time 5646 niacin medicatio n edema Not available Not available 12/05/2021 7393 RxNorm Jayde Romero [facility] 2 12:22:18 Medications Name Sig Start Date Stop Date Status Note LastModified by Organization Details LastModified Time carvedilol 6.25 mg tablet TAKE ONE TABLET BY MOUTH TWICE A DAY WITH MEALS active Not Available Not Available No t Available prednisone 10 mg tablet TAKE FOUR TABLETS BY MOUTH FOR 2 DAYS,THEN THREE TABLETS FOR 2 DAYS, THEN TWO TABLETS FOR 2 DAYS, THEN ONE TABLET FOR 2 DAYS active Not Available Not Available No t Available azithromyci n 250 mg tablet TAKE TWO TABLETS BY MOUTH ONE DOSE ON THE FIRST DAY, THEN TAKE ONE TABLET DAILY TIMOTHY Lowe active Not Available Not Available No t Available metoprolol succinate ER 50 mg tablet,exte nded release 24 hr Take 1 tablet every day by oral route for 30 days. 05/16 completed Not Available Not Available Not Available amlodipine 5 mg tablet Take 1 tablet every day by oral route for 30 days. 09/15 completed Not Available Not Available Not Available diclofenac sodium 75 mg tablet,reba yed release TAKE ONE TABLET BY MOUTH TWICE A DAY FOR 10 DAYS active Not Available Not Available No t Available hydrochloro thiazide 25 mg tablet Take 1 tablet every day by oral route. 01/09 completed Not Available Not Available Not Available methylpredn isolone 4 mg tablets in a dose pack TAKE DIRECTED 06/09 completed Not Available Not Available Not Available albuterol sulfate HFA 90 mcg/actuati on aerosol inhaler INHALE TWO PUFFS BY MOUTH EVERY 4 HOURS NEEDED active Not Available Not Available No t Available cefdinir 300 mg capsule TAKE ONE CAPSULE BY MOUTH EVERY 12 HOURS FOR 14 DAYS 01/21 completed Not Available Not Available Not Available oxycodone 5 mg tablet TAKE ONE TABLET BY MOUTH THREE TIMES A DAY NEEDED FOR 7 DAYS 08/11 completed Not Available Not Available Not Available rosuvastati n 10 mg tablet TAKE ONE TABLET BY MOUTH EVERY DAY 01/21 completed Not Available Not Available Not Available rosuvastati n 20 mg tablet TAKE ONE TABLET BY MOUTH EVERY DAY active Not Available Not Available No t Available fenofibrate nanocrystal lized 145 mg tablet TAKE ONE TABLET BY MOUTH EVERY DAY active Not Available Not Available No t Available Vitals Date Recorded Body height Body mass index (BMI) Body weight Heart rate Oxygen saturation Oxygen saturation in Arterial blood by Pulse oximetry Systolic And Diastolic Provider Name and Address Organization Details Last Updated DateTime 4 177.8 cm 39.9 kg/m2 246878. 32 g 62 /min 99 % 99 % 136/86 mm[Hg] [facility] 4 10:41:08 Date Recorded Body height Body mass index (BMI) Body weight Heart rate Oxygen saturation Oxygen saturation in Arterial blood by Pulse oximetry Systolic And Diastolic Provider Name and Address Organization Details Last Updated DateTime 4 177.8 cm 31.6 kg/m2 57598.3 2 g 84 /min 97 % 97 % 134/84 mm[Hg] Rowan Louise [facility] 4 13:28:27 Date Recorded Body height Body mass index (BMI) Body weight Heart rate Oxygen saturation Oxygen saturation in Arterial blood by Pulse oximetry Systolic And Diastolic Provider Name and Address Organization Details Last Updated DateTime 3 177.8 cm 32.3 kg/m2 247882. 28 g 77 /min 98 % 98 % 160/90 mm[Hg] Sindhu Funes [facility] 3 10:43:42 Date Recorded Body height Body mass index (BMI) Body weight Heart rate Oxygen saturation Oxygen saturation in Arterial blood by Pulse oximetry Systolic And Diastolic Provider Name and Address Organization Details Last Updated DateTime 4 177.8 cm 31.6 kg/m2 73158.3 2 g 69 /min 98 % 98 % 130/82 mm[Hg] Caio Em [facility] 4 11:21:23 Social History Question Answer Notes LastModified by [facility] Medical Details LastModified Time Tobacco Smoking Status Never Smoker Jayde pisano [facility] 12/05/2021 14:17:33 What Was The Date Of Your Most Recent Tobacco Screening? 07/04/2024 [email or web address] Information not available 07/04/2024 Sex: Unknown Functional Status Question Answer Note LastModified by [facility] Medical Details LastModified Time Do you use any illicit or recreational drugs? No Information not available 12/05/2021 Do you or have you ever used any other forms of tobacco or nicotine? No Information not available 12/05/2021 Mental Status None recorded. Family History Nothing Reported. Medical History No medical history recorded. Past Encounters Encounter ID Performer Location Encounter Start Date Encounter Closed Date Diagnosis/Indication Diagnosis SNOMED-CT Code Diagnosis ICD10 Code Diagnosis IMO Codes Diagnosis Note [id number] Anup Mendoza [facility] [address] [facility],[place] [address] 12/05/2021 14:02:34 12/05/2021 16:11:08 Hypertensive disorder 41021509 I10 will start with metoprolol get [place] [id number] Anup Mendoza DO [facility] [address] [facility], [place] [address] 01/09/2022 15:23:24 01/09/2022 16:09:45 Hypertensive disorder 51641399 I10 will start with metoprolol get echo [place] [id number] Anup Mendoza DO [facility] [address] [facility] [address], [place] [address] 02/06/2022 16:18:09 02/06/2022 16:46:20 Screening for malignant neoplasm of colon 716934461 Z12.11 will agree to but msut get cardiac eval done first Active or passive immunization 882027812 Z23 patient advised he is due for tdap Hypertensive disorder 38 413331 I10 will start with metoprolol get echo [place] [id number] Anup Mendoza [facility] [address] [facility], [place] [address] 09/15/2022 11:24:39 09/19/2022 08:39:21 Blood in ear canal 095018495 H92.21 will start on z-noemí to prevent serious infection Otalgia of right ear 383 7834821 H92.01 will set up z pakif continues to be irritated will add additional treatments will call if something changes [facility] [id number] Anup Mendoza [facility] [address] [facility], [place] [address] 07/03/2023 10:35:19 07/03/2023 13:29:00 Hypertensive disorder 94370024 I10 carvedilol working well per cardiology bp is overall excellent Pain of bi lateral knee joints 9666343555 95034 M25.561 M25.562 Pain of bi lateral hip joints 8887675614 8021831 M25.551 M25.552 progressiv e since knees getting worse Instabilit y of joint of left knee 5237277907 186379 M25.362 [id number] Anup Mendoza [facility] [address] [facility] [address],[place] [address] 11/16/2023 09:53:40 11/16/2023 15:54:22 Acute sinusitis 06776051 J01.90 History of multiple allergies 532757681 Z88.9 [id number] Anup PatelLittle Labritta [facility] [address] [facility], [address] [place] [facility] [address] 01/22/2024 10:29:07 01/22/2024 16:32:14 Depression screening 691509529 Z13.31 negative Fatigue 31161191 R53.83 will set up with lab work to recheck levelsposs ible low T levels Screening for malignant neoplasm of prostate 057454566 Z12.5 needs screening [id number] Anup Carrasquillo Labr[facility] [address] [facility] [address], [place] [address] 06/09/2024 13:18:14 06/10/2024 08:30:40 Seasonal allergic rhinitis 255809702 J30.2 will set up with cath lab technologist, needs new one Asthma 369058132 J45.20 back to baseline [id number] Anup Carrasquillo Labritta [facility] [address] [facility], [address] [place] [facility] [address] 07/04/2024 11:15:52 07/04/2024 11:39:58 Pain of bilateral knee joints 9805019826 14512 M25.561 M25.562 left knee ruthann Hypertensive disorder 38 896578 I10 carvedilol working well per cardiology bp is overall excellent Instabilit y of joint of left knee 1477694919 530849 M25.362 Health Concerns Section Related Observation LastModified by Organization Detai ls LastModified Time None Recorded Concern Status LastModified by Organization Details LastModified Time None Recorded Advance Directives Directive None Recorded Payers Insurance Date Sequence Insurance Name Policy Number Policy Hilton Covered Member ID Hilton Member ID Guarantor Name 07/05/2024 1 [facility] [id number] Je Sherwood [id number] Je Sherwood 06/03/2024 1 [facility] Je Sherwood [id number] Je Sherwood Notes Date Note Type Note Provider Name a nd Address Organization Details Recorded Time 07/03/2023 text/html ROS as noted in the HPI relates having a lot of discomfort to his knee and hipsrelates he is pretty stiff in the am and then loosens up lateralso notes that he has had gout in the knee in the pastrelates he know he is walking diff and the wear on his shoes have changednote has had multiple gout attacks always hit the left knee Anup Carrasquillo DO [facility] [address] [place], [address], [facility] 07/03/2023 11:22:13 11/16/2023 text/html ROS as noted in the HPI patient is evaluated via tele/video assessment per patient consentduring current pandemic started having symptoms a few days ago covid neg nasal discharge with purulent color intense pain in sinuses if bent over Anup PatelLittle Mendoza DO [address] [place], [address], [facility] 11/16/2023 14:03:50 01/22/2024 text/html ROS as noted in the HPI c/o fatigue the patient reports fatigue, lowered libido, increased aching of his jointswill set up with blood work to recheck his levels h/x of vit d defcurrently on supplements follows with cardiohas his liver functions checked with cardio the patient agreed to lab work follow up PAOLO ROB [address] [place], [address], [facility] 01/22/2024 11:16:27 06/09/2024 text/html ROS as noted in the HPI asthma f/u asthma: doing okay , recovering from his recent flare-upsstill has a residual cough, dry, intermittently albuterol has been helpful for the patient advised on his tetanus shot which [place] [facility] [facility] needs new cath lab technologist referral PAOLO ROB [address] [place], [address], [facility] 06/09/2024 13:46:39 07/04/2024 text/html ROS as noted in the HPI here for rechlk has had worsening pain of knoen left knee deg issues and had been getting gel injections which had helped a littlebut has excacerbated over the last few daysno injury Anup Mendoza, DO [address] [facility], [place], [address], [facility] 07/04/2024 11:38:00
--- OUTSIDE RECORDS SUMMARY | 2025-07-08 11:32 | XMS_ITS | Patient Health Record ---
Author Organization [facility] Address [address] [place] [address] Care Team Providers Care Territory Outside Sales Manager Name Role Phone Carmel BULLARD, [facility] Primary Care Provider Roni Osei Unavailable [phone] Reason For Referral No Information Medications Medication [...] Status Risk Notes Problem Acquired hallux valgus (93575421) Hallux valgus (acquired), right foot (M20.11) Active confirmed Plan Of Treatment No Information Insurance Providers Payer Name Payer Address Payer Phone Subscriber Number Group Number Insured Name Patient Relationship to Insured Coverage Start Date Coverage End Date [employer] [address] [place] [address] [id number] Je Sherwood Self - patient is the insured Medical (General) History Medical History History ICD Code Broken bones chronic sinusitis Gout Warts Surgical History Surgery Date(Month/Year) umbilical hernia repair 1972 tendon repair 1986 knee, right 1988 sinus surgery 1992 appendix 1999 hand/wrist 2014
[2025-07-08 11:33] VITALS: BP 174/103; PULSE 100; RESP 18; O2SAT 98
[2025-07-08 11:36] VITALS: BP 174/103; PULSE 100; RESP 18; TEMP 36.6; O2SAT 98
== END 2025-07-08 11:37 | disposition home or self-care (01) ==
PROVIDERS: Emergency Provider Emergency Medicine; PCP Internal Medicine
DX: S50.02XA Contusion of left elbow, initial encounter (principal); S80.02XA Contusion of left knee, initial encounter; S80.01XA Contusion of right knee, initial encounter; Y35.811A Legal intervention involving manhandling, law enforcement official injured, initial encounter; V98.8XXA Other specified transport accidents, initial encounter; Y93.89 Activity, other specified; Y92.410 Unspecified street and highway as the place of occurrence of the external cause; Y99.0 Civilian activity done for income or pay
CPT/HCPCS: 73080; 73564; 99282; 99283

== ENCOUNTER → 2025-07-08 09:53 | Outpatient (BNV) | payer OTHER, SELFPAY | PROVIDERS: Emergency Provider Emergency Medicine; PCP Internal Medicine; Visit Provider Radiology Diagnostic Radiology | DX: M25.561 Pain in right knee (principal); M25.562 Pain in left knee; M17.0 Bilateral primary osteoarthritis of knee; I70.203 Unspecified atherosclerosis of native arteries of extremities, bilateral legs; M25.522 Pain in left elbow; M77.8 Other enthesopathies, not elsewhere classified; Z04.3 Encounter for examination and observation following other accident | CPT/HCPCS: 73080; 73564 ==

== ENCOUNTER → 2025-07-09 07:40 | Outpatient (BNVA) | payer OTHER, SELFPAY | PROVIDERS: PCP Internal Medicine; Visit Provider Emergency Medicine | DX: S80.01XA Contusion of right knee, initial encounter (principal); S80.02XA Contusion of left knee, initial encounter; S50.02XA Contusion of left elbow, initial encounter; Y02.0XXA Assault by pushing or placing victim in front of motor vehicle, initial encounter | CPT/HCPCS: 99202 ==